=== PATIENT | female | born 1990 | race Caucasian/White ===

== ENCOUNTER → 2017-04-03 | Outpatient (CLI) | payer OTHER ==
[~2017-04-03] MED LIST: PRENTAB26 PO
[2017-04-03 15:39] LABS: BASO % 0.2 %; BASO ABS # 0.02 K/uL (0-0.2); COMPLETE YES; EOS % 0.8 %; HEMATOCRIT 37.2 % (37-47); IG% 0.1 %; LYMPH % 16.3 %; MEAN CELL VOLUME 87.3 fL (80-100); MEAN CORPUSCULAR HEMOGLOBIN 30.3 pg (25-34); MEAN CORPUSCULAR HGB CONC 34.7 g/dl (32-36); MEAN PLATELET VOLUME 11.4 fL (7.4-10.4); MONO % 7.3 %; NEUT % 75.3 %; PLATELET COUNT 226 K/uL (130-400); RED BLOOD COUNT 4.26 M/uL (4.2-5.4); WHITE BLOOD COUNT 11.04 K/uL (4.8-10.8)
[2017-04-03 18:11] LABS: URINE APPEARANCE CLEAR (CLEAR); URINE BILIRUBIN NEG (NEG); URINE COLOR YELLOW; URINE EPITHELIAL CELL AUTO >30 /lpf (0-5); URINE NITRITE NEG (NEG); URINE PH 7.5 (4.5-7.5); URINE SPECIFIC GRAVITY 1.015 (1.000-1.030); UROBILINOGEN NEG (NEG)
[2017-04-03 18:32] LABS: BENZODIAZEPINE, URINE NEG (NEG); COCAINE,URINE NEG (NEG); PHENCYCLIDINE, URINE NEG (NEG)
[2017-04-03 18:38] LABS: MANUAL MICROSCOPIC REQUIRED? NO; REVIEW REQ? NO
[2017-04-07 10:08] LABS: CHLAMYDIA TRACH RNA*** NOT DETECTED (NOT DETECTED); GC (NEIS GONORRHOEAE)RNA** NOT DETECTED (NOT DETECTED)
== END | disposition home or self-care (01) ==
LOC: C.LAB1850 14:03
PROVIDERS: ATTEND Obstetrics & Gynecology
DX: Z34.81 Encounter for supervision of other normal pregnancy, first trimester (principal)

== ENCOUNTER → 2017-05-29 | Outpatient (CLI) | payer OTHER ==
[~2017-05-29] MED LIST changes: +ACET-1256 PO; +PEDICHW50 PO
[2017-05-29 17:18] LABS: GTGD 50 Grams
== END | disposition home or self-care (01) ==
LOC: C.LAB1850 13:52
PROVIDERS: ATTEND Obstetrics & Gynecology
DX: Z34.82 Encounter for supervision of other normal pregnancy, second trimester (principal)

== ENCOUNTER 2017-07-02 08:32 | Emergency (ER) | payer OTHER ==
[~2017-07-02] VITALS: Ht 157.5 cm; Wt 58.2 kg
[~2017-07-02 08:32] MED LIST changes: -ACET-1256 PO; -PEDICHW50 PO
[2017-07-02 08:40] VITALS: TEMP 36.8; Ht 157.5 cm; Wt 58.2 kg
[2017-07-02] MEDS ORDERED: PEDICHW50 PO (09:22)
[2017-07-02] MEDS ORDERED: ACET-1256 PO (09:22)
--- NOTE | 2017-07-02 09:31 | EMERGENCY ROOM VISIT NOTE ---
ED Visit Note First contact with patient: 08:44 CHIEF COMPLAINT: Cold symptoms 3 days HISTORY OF PRESENT ILLNESS: Patient is a 20 week 26-year-old white female who presents to the emergency Department accompanied by her grandmother for evaluation of upper respiratory symptoms that started to 3 days ago. She reports stuffy, runny nose, sinus pressure, and a nonproductive cough. She's not had a fever. She denies any chest pain or shortness of breath. There have been sick family members at home. She reports that she doesn't know what to take because of her . REVIEW OF SYSTEMS: Review of systems as per HPI. All other systems reviewed were negative. 10 systems reviewed. PMH: Electronic medical records are reviewed and summarized as above/below. See Problem List. This is her third . SOCIAL HISTORY: Patient lives at home. Smoker. PHYSICAL EXAM: Vital Signs: Reviewed Nurse's notes. MENTAL STATUS: Well-appearing, gravid, 26-year-old white female who is awake and alert and in no acute distress. HEAD: Atraumatic, without temporal or scalp tenderness. EYES: PERRL, EOMI, no discharge or injection. EARS: Tympanic membranes intact, not inflamed, have normal contour. External canals clear. NOSE: Nares patent, turbinates edematous and boggy with clear rhinorrhea. MOUTH: Mucous membranes moist, no lesions, tongue and gums appear normal. THROAT: No pharyngeal injection, exudates, or tonsillar hypertrophy. Airway is patent. NECK: Supple, nontender, no lymphadenopathy. HEART: Regular rate and rhythm without murmurs, ectopy, gallops, or rubs. LUNGS: Clear to auscultation and breath sounds equal, no wheezes, rales, or rhonchi. SKIN: Normal. NEUROLOGICAL: Sensory and motor functions grossly intact. Normal gait. EMERGENCY DEPARTMENT COURSE: The patient was seen and examined as above. Her old records are reviewed. She was just here accompanying her sister who was evaluated for similar symptoms by myself 2 days ago. This is her third . She did not attempt to call her PCP or her INSTALLATION SUPERVISOR for guidance for treatment of her likely viral upper respiratory illness. She was reassured that she can safely use most [id number] medications short-term for her upper respiratory illness. Patient asked for a note for her [employer] plans staff officer as I was leaving the exam room. Physical exam is not consistent with sinusitis, bronchitis or tonsillitis. Do not suspect pneumonia. Medication reconciliation: I attest that I have personally reviewed the patient' s current medication list. Blood pressure screening : Patient was found to have normal blood pressure on screening and does not require follow-up. Problem List Medical Problems: (1) Abdominal pain Status: Resolved (2) Acute bronchitis Status: Resolved (3) Amniotic fluid leaking Status: Resolved (4) Ankle pain Status: Resolved (5) Back pain Status: Resolved (6) Dental caries Status: Resolved (7) Early stage of Status: Resolved (8) False labor Status: Resolved (9) First trimester Status: Resolved (10) Lower abdominal pain Status: Resolved (11) Missed Status: Resolved (12) Pain, dental Status: Resolved (13) Status: Resolved (14) uterine contractions Status: Resolved (15) Right ovarian cyst Status: Resolved (16) Symptoms of urinary tract infection Status: Resolved (17) Vaginitis Status: Resolved Surgical Problems: (1) Status post ORIF of fracture of ankle Status: Resolved (2) Thumb laceration Status: Resolved Current/Historical Medications Scheduled Acetaminophen (Tylenol), 500 MG PO DAILY Pediatric Multiple Vitamin W/ (Flintstones Chewable), 1 TAB PO QAM Allergies Coded Allergies: Atomoxetine (Verified Allergy, Unknown, heart racing, 07/02/17) Vital Signs Date Time Temp Pulse Resp B/P (MAP) Pulse Ox O2 Delivery O2 Flow Rate FiO2 07/02/17 09:50 67 18 105/66 98 07/02/17 08:40 36.8 64 18 99/64 99 Room Air Departure Information Impression Primary Impression: Upper respiratory infection Referrals Tiffanie Black D.O. (PCP) Patient Instructions My [facility] Additional Instructions Acetaminophen(Tylenol) may be used for fever or pain. Use 1000mg every six hours as needed. Avoid using more than 3000mg in a 24 hour period. Pseudoephedrine(Sudaphed): 30-60mg every 6 hours as needed for nasal congestion. Do not take this with other stimulant products or supplements. Guaifenesin (Mucinex) : Take 1200 mg every 12 hours as needed for nasal/chest congestion, to help thin secretions. Robitussin or Delsym as needed for cough. Rest and drink plenty of fluids. Wash your hands after nose blowing, sneezing, or coughing. Most germs are spread through contact, therefore improper hygiene may result in your close contacts and loved ones becoming ill just like you. Continue current medications. Return to the ER for severe headache, neck stiffness, chest pain, difficulty breathing, fevers, vomiting, worsening of your condition, or as needed. Follow up with your primary physician this week for a recheck of your current condition.
[2017-07-02 09:50] VITALS: BP 105/66; PULSE 67; O2SAT 98
== END 2017-07-02 09:51 | disposition home or self-care (01) ==
LOC: C.EDB 08:35 → C.EDA 09:51
DX: O99.512 Diseases of the respiratory system complicating pregnancy, second trimester (principal); O99.332 Smoking (tobacco) complicating pregnancy, second trimester; J06.9 Acute upper respiratory infection, unspecified; F17.200 Nicotine dependence, unspecified, uncomplicated; Z3A.20 20 weeks gestation of pregnancy

== ENCOUNTER 2017-08-10 22:36 | Outpatient (CLI) | payer OTHER ==
[~2017-08-10] VITALS: Ht 160 cm; Wt 61.1 kg
[~2017-08-10 22:36] MED LIST changes: +ACET-1256 PO; +PEDICHW50 PO; -PRENTAB26 PO
[2017-08-10 23:31] VITALS: Ht 160 cm; Wt 61.1 kg
== END 2017-08-10 23:39 | disposition home or self-care (01) ==
LOC: C.OPB 22:36 → C.LD 22:38 → C.OPB 23:39
PROVIDERS: ATTEND Obstetrics & Gynecology
DX: O99.89 Other specified diseases and conditions complicating pregnancy, childbirth and the puerperium (principal); M54.9 Dorsalgia, unspecified; Z3A.26 26 weeks gestation of pregnancy

== ENCOUNTER → 2017-08-28 | Outpatient (CLI) | payer OTHER ==
[2017-08-28 13:16] LABS: HEMATOCRIT 31.2 % (37-47)
[2017-08-28 13:22] LABS: GTGD 50 Grams
[2017-08-28 14:19] LABS: URINE APPEARANCE CLEAR (CLEAR); URINE BILIRUBIN NEG (NEG); URINE COLOR YELLOW; URINE EPITHELIAL CELL AUTO >30 /lpf (0-5); URINE NITRITE NEG (NEG); URINE SPECIFIC GRAVITY 1.022 (1.000-1.030); UROBILINOGEN POS (NEG)
[2017-08-28 14:24] LABS: MANUAL MICROSCOPIC REQUIRED? NO; REVIEW REQ? NO
== END | disposition home or self-care (01) ==
LOC: C.LAB1850 11:40
PROVIDERS: ATTEND Obstetrics & Gynecology
DX: Z34.83 Encounter for supervision of other normal pregnancy, third trimester (principal)

== ENCOUNTER 2017-09-06 11:26 | Outpatient (CLI) | payer OTHER ==
[2017-09-06 11:58] LABS: URINE APPEARANCE CLEAR (CLEAR); URINE BILIRUBIN NEG (NEG); URINE COLOR DK YELLOW; URINE EPITHELIAL CELL AUTO >30 /lpf (0-5); URINE NITRITE NEG (NEG); URINE SPECIFIC GRAVITY 1.025 (1.000-1.030); UROBILINOGEN POS (NEG); ZZUR CULT IF INDIC CLEAN CATCH NO
[2017-09-06 12:00] LABS: MANUAL MICROSCOPIC REQUIRED? NO; REVIEW REQ? NO
[2017-09-10 00:04] LABS: CHLAMYDIA TRACH RNA*** NOT DETECTED (NOT DETECTED); GC (NEIS GONORRHOEAE)RNA** NOT DETECTED (NOT DETECTED)
== END 2017-09-06 13:11 | disposition home or self-care (01) ==
LOC: C.OPB 11:26 → C.LD 11:28 → C.OPB 13:11
PROVIDERS: ATTEND Obstetrics & Gynecology
DX: O99.89 Other specified diseases and conditions complicating pregnancy, childbirth and the puerperium (principal); M54.9 Dorsalgia, unspecified; Z3A.30 30 weeks gestation of pregnancy

== ENCOUNTER 2017-09-25 20:20 | Observation (INO) | payer OTHER ==
[~2017-09-25] VITALS: Ht 160 cm; Wt 63.0 kg
[2017-09-25] MEDS ORDERED: LACTATED RINGER'S 1000ML 1,000 ML IV PRN (21:10)
[2017-09-25] MEDS ORDERED: BETAMETH SOD PHOS/ACETATE IA 6 MG/ML IM STA (21:12)
[2017-09-25] MEDS: LACTATED RINGER'S 1000ML 1,000 ML IV SCH ×2 (21:24→22:58)
[2017-09-25 21:36] VITALS: Ht 160 cm; Wt 63.0 kg
[2017-09-25] MEDS ORDERED: FERR1TAB23 (21:36)
[2017-09-25 21:37] LABS: HEMATOCRIT 32.4 % (37-47); HEMOGLOBIN 11.2 g/dL (12.0-16.0); MEAN CELL VOLUME 86.6 fL (80-100); MEAN CORPUSCULAR HEMOGLOBIN 29.9 pg (25-34); MEAN CORPUSCULAR HGB CONC 34.6 g/dl (32-36); MEAN PLATELET VOLUME 10.1 fL (7.4-10.4); PLATELET COUNT 255 K/uL (130-400); RED CELL DISTRIBUTION WIDTH CV 13.2 % (11.5-14.5); RED CELL DISTRIBUTION WIDTH SD 42.3 fL (36.4-46.3); WHITE BLOOD COUNT 13.24 K/uL (4.8-10.8)
[2017-09-25] MEDS ORDERED: IV FLUIDS COMPLETED PRN (22:15)
[2017-09-25] MEDS ORDERED: PENICILLIN G POTASSIUM IV 3 MU in DEXTROSE 5% 100ML 100 ML IV PRN (23:15)
[2017-09-25] MEDS ORDERED: PENICILLIN G POTASSIUM IV 6 MU in DEXTROSE 5% 250ML 250 ML IV ONE (23:45)
[2017-09-26] MEDS ORDERED: MAGNESIUM SULFATE / WTR 1,000 ML IV ONE (00:11)
[2017-09-26] MEDS ORDERED: MAG SULFATE BOLUS FROM BAG IV ONE (00:30)
== END 2017-09-26 01:36 | disposition short-term general hospital (02) ==
LOC: C.LD 20:20 → C.OPB 20:20 → C.LD 21:12 → C.OPB 21:12 → C.LD 21:15
PROVIDERS: ADMIT Obstetrics & Gynecology; ATTEND Obstetrics & Gynecology
DX: O36.8130 Decreased fetal movements, third trimester, not applicable or unspecified (principal); Z3A.33 33 weeks gestation of pregnancy

== ENCOUNTER → 2018-04-17 | Outpatient (CLI) | payer OTHER ==
[~2018-04-17] MED LIST changes: +FERR1TAB23
== END | disposition home or self-care (01) ==
LOC: C.LAB1850 15:57
PROVIDERS: ATTEND Obstetrics & Gynecology
DX: O09.212 Supervision of pregnancy with history of pre-term labor, second trimester (principal)